=== PATIENT | male | born 1980 | race Caucasian/White ===

== ENCOUNTER 2024-02-19 17:23 | Emergency (ER) | payer OTHER ==
[2024-02-19] MEDS ORDERED: Lidocaine 2% 20 ML MDV INFILT ONE (17:24)
== END 2024-02-19 18:45 | disposition home or self-care (01) ==
LOC: FB.ED 17:23
DX: S68.111A Complete traumatic metacarpophalangeal amputation of left index finger, initial encounter (principal); F17.210 Nicotine dependence, cigarettes, uncomplicated; W26.0XXA Contact with knife, initial encounter
CPT/HCPCS: 12001; 99283